=== PATIENT | male | born 1985 | race Caucasian/White ===

== ENCOUNTER 2024-02-27 00:41 | Emergency (ER) | payer SELFPAY ==
[2024-02-27 00:43] VITALS: BP 126/66
[2024-02-27 00:49] VITALS: BMI 41.0
[2024-02-27 00:55] LABS: Glucose - Point of Care 103 mg/dl (70-99)
--- NOTE | 2024-02-27 01:04 | ED.GENMED ---
History of Present Illness
<BRUNO Gabriel - Last Filed: 02/27/24 02:26>
General
Chief Complaint: Overdose Unintentional
Source: patient
Exam Limitations: clinical condition
Time Seen by Provider: 02/27/24 00:48
Nursing documentation reviewed up to this point in time: agreed with
<Akira eRnee DO - Last Filed: 02/27/24 02:32>
General
Source: patient
Exam Limitations: clinical condition
History of Present Illness
History of Present Illness:
Pleasant 38-year-old male presents with acute heroin overdose. Patient admits to doing 1 bag of heroin this evening. He states that the first time in 15 years. Patient was out at a bar he admits to drinking an alcoholic beverage before going into
the bathroom. He was found some unresponsive. EMS and police were notified. When police arrived they gave him 4 mg of intranasal Narcan. Patient awakened.
Past History
<BRUNO Gabriel - Last Filed: 02/27/24 02:26>
Social History
Tobacco: Non-smoker
Alcohol: Former
Drug: None
Review of Systems
<DO Dung Bell Last Filed: 02/27/24 02:32>
Review of Systems
Allergies reviewed?: Yes
Unable to obtain full review of systems at this time due to: due to acuity
Other source history: ambulance crew
All Other Systems: Not applicable
Constitutional: Reports no symptoms
EENT: Reports no symptoms
Respiratory: Reports no symptoms
Cardiac: Reports no symptoms
ABD/GI: Reports no symptoms
: Reports no symptoms
Musculoskeletal: Reports no symptoms
Skin: Reports no symptoms
Neurological: Reports no symptoms
Endocrine: Reports no symptoms
Hematologic/Lymphatic: Reports no symptoms
Psychiatric: Reports anxiety
Phy Exam
<Akira Renee DO - Last Filed: 02/27/24 02:32>
General Physical Exam
General Presentation: no apparent distress
General age: appears older than age
General Skin: warm and dry
General Habitus: obese
General Mental: appears intoxicated
General Hydration: appears well hydrated
ENT Exam
ENT Exam: EOMI, pharynx normal, neck supple and normocephalic
Eye Exam
Eye Exam: PERRL, cornea clear and conjunctiva normal
Cardiovascular Exam
Cardiovascular Exam: regular rate/rhythm, no edema, no murmur and normal peripheral pulses
Pulmonary Exam
Pulmonary Exam: lungs clear, no respiratory distress, no rales, no crackles, no rhonchi, no stridor, no wheezing and no cough
Gastrointestinal Exam
Gastrointestinal Exam: normal bowel sounds, non tender, soft, no organomegaly, no pulsatile mass and non distended
Neurological Exam
Neurological Exam: alert, oriented x3, no motor deficits and speech normal
Musculoskeletal Exam
Musculoskeletal Exam: edema
Skin Exam
Skin Exam: normal color, warm/dry, no rash and no petechia
Psychiatric Exam
Psychiatric Exam: normal mood/affect
Course
<ST NeryPA - Last Filed: 02/27/24 02:26>
Orders/Labs/Results
Orders:
Orders
02/27/24 00:46
EKG [Electrocardiogram (*1)] Urgent
Reason for Study: Syncope
02/27/24 00:47
EKG- Treatment ONCE
02/27/24 00:48
Bedside Glucose- Treatment ONCE
Cardiac Monitoring- Treatment ONCE
Urine Drug Abuse Screen Urgent
Date Specimen was Collected: 02/27/24
Time Specimen was Collected: 01:47
02/27/24 01:01
Acetaminophen Urgent
Alcohol Urgent
Complete Blood Count/With Diff Urgent
Comprehensive Metabolic Panel Urgent
NT-proBNP Urgent
PTT Urgent
Prothrombin Time Urgent
Salicylate Urgent
Troponin I Urgent
02/27/24 01:48
Urinalysis Reflex To Culture Urgent
Date Specimen was Collected: 02/27/24
Time Specimen was Collected: 01:47
Urine Microscopic Reflex Cult Urgent
Urine Culture Urgent
SHAHLA Source: U
Specimen Description:
Date Specimen was Collected: 02/27/24
Time Specimen was Collected: 01:47
Abnormal Lab Results
02/27/24 02/27/24 02/27/24
00:54 01:01 01:48
RBC 3.64 L 10^6/uL
(4.70-6.10)
Hgb 12.5 L g/dL
(13.0-18.0)
Hct 36.0 L %
(39.0-52.0)
MCV 98.9 H fL
(80.0-94.0)
MCH 34.3 H pg
(27.0-31.0)
Plt Count 91 L 10^3/uL
(130-400)
MPV 11.6 H fL
(7.4-10.4)
Absolute Lymphs (auto) 0.6 L 10^3/uL
(1.2-3.4)
Absolute Monos (auto) 0.8 H 10^3/uL
(0.1-0.6)
Neutrophils % 75.7 H %
(42.2-75.2)
Lymphocytes % 8.4 L %
(20.5-51.1)
Monocytes % 12.5 H %
(1.7-9.3)
PT 16.7 H Sec
(11.4-14.6)
Creatinine 0.6 L mg/dL
(0.7-1.3)
Glucose 109 H mg/dl
(70-99)
Total Bilirubin 2.6 H mg/dl
(0.2-1.3)
AST 96 H U/L
(17-59)
Ur Occult Blood Reflex Trace A
(Negative)
Urine Bilirubin 1+ A
(Negative)
Urine Urobilinogen 4+ A
(Neg - 1+)
Urine RBC 7-10 A /HPF
(0-2)
Urine Bacteria (Reflex) Moderate A
(Negative)
Urine Albumin (Reflex) 3+ A
(Neg - Trace)
Salicylates < 1.0 L mg/dl
(2.0-20.0)
Acetaminophen < 10 L ug/ml
(10-30)
POC Glucose 103 H mg/dl
(70-99)
02/27/24 01:01
02/27/24 01:01
Vital Signs
Initial and Last Documented VS:
Initial Vital Signs
Temp Pulse Resp BP Pulse Ox
97.8 F 88 19 126/66 95
02/27/24 00:43 02/27/24 00:43 02/27/24 00:43 02/27/24 00:43 02/27/24 00:43
Last Documented Vital Signs
Temp Pulse Resp BP Pulse Ox
97.8 F 88 21 126/66 95
02/27/24 00:43 02/27/24 01:00 02/27/24 01:00 02/27/24 00:43 02/27/24 01:08
Ayannalt;Akira Renee, DO - Last Filed: 02/27/24 02:32>
Orders/Labs/Results
Orders:
Orders
02/27/24 00:46
EKG [Electrocardiogram (*1)] Urgent
Reason for Study: Syncope
02/27/24 00:47
EKG- Treatment ONCE
02/27/24 00:48
Bedside Glucose- Treatment ONCE
Cardiac Monitoring- Treatment ONCE
Urine Drug Abuse Screen Urgent
Date Specimen was Collected: 02/27/24
Time Specimen was Collected: 01:47
02/27/24 01:01
Acetaminophen Urgent
Alcohol Urgent
Complete Blood Count/With Diff Urgent
Comprehensive Metabolic Panel Urgent
NT-proBNP Urgent
PTT Urgent
Prothrombin Time Urgent
Salicylate Urgent
Troponin I Urgent
02/27/24 01:48
Urinalysis Reflex To Culture Urgent
Date Specimen was Collected: 02/27/24
Time Specimen was Collected: 01:47
Urine Microscopic Reflex Cult Urgent
Urine Culture Urgent
SHAHLA Source: U
Specimen Description:
Date Specimen was Collected: 02/27/24
Time Specimen was Collected: 01:47
Abnormal Lab Results
02/27/24 02/27/24 02/27/24
00:54 01:01 01:48
RBC 3.64 L 10^6/uL
(4.70-6.10)
Hgb 12.5 L g/dL
(13.0-18.0)
Hct 36.0 L %
(39.0-52.0)
MCV 98.9 H fL
(80.0-94.0)
MCH 34.3 H pg
(27.0-31.0)
Plt Count 91 L 10^3/uL
(130-400)
MPV 11.6 H fL
(7.4-10.4)
Absolute Lymphs (auto) 0.6 L 10^3/uL
(1.2-3.4)
Absolute Monos (auto) 0.8 H 10^3/uL
(0.1-0.6)
Neutrophils % 75.7 H %
(42.2-75.2)
Lymphocytes % 8.4 L %
(20.5-51.1)
Monocytes % 12.5 H %
(1.7-9.3)
PT 16.7 H Sec
(11.4-14.6)
Creatinine 0.6 L mg/dL
(0.7-1.3)
Glucose 109 H mg/dl
(70-99)
Total Bilirubin 2.6 H mg/dl
(0.2-1.3)
AST 96 H U/L
(17-59)
Ur Occult Blood Reflex Trace A
(Negative)
Urine Bilirubin 1+ A
(Negative)
Urine Urobilinogen 4+ A
(Neg - 1+)
Urine RBC 7-10 A /HPF
(0-2)
Urine Bacteria (Reflex) Moderate A
(Negative)
Urine Albumin (Reflex) 3+ A
(Neg - Trace)
Salicylates < 1.0 L mg/dl
(2.0-20.0)
Acetaminophen < 10 L ug/ml
(10-30)
POC Glucose 103 H mg/dl
(70-99)
02/27/24 01:01
02/27/24 01:01
Vital Signs
Initial and Last Documented VS:
Initial Vital Signs
Temp Pulse Resp BP Pulse Ox
97.8 F 88 19 126/66 95
02/27/24 00:43 02/27/24 00:43 02/27/24 00:43 02/27/24 00:43 02/27/24 00:43
Last Documented Vital Signs
Temp Pulse Resp BP Pulse Ox
97.8 F 88 21 126/66 95
02/27/24 00:43 02/27/24 01:00 02/27/24 01:00 02/27/24 00:43 02/27/24 01:08
<BRUNO Gabriel - Last Filed: 02/27/24 02:26>
*Critical Care Note
Total Time (30-74mins, 75-104mins- exclusive of procedures): Not Applicable
ED Attending Note
<BRUNO Gabriel - Last Filed: 02/27/24 02:26>
-
Portions of this chart may have been created with voice recognition software.� Occasional wrong word or��sound alike� substitutions may have occurred due to the inherent limitations of voice recognition software.
Discharge Plan
Departure
Patient Disposition: Home (Routine Discharge)
Date of Disposition: 02/27/24
Time of Disposition: 02:31
Patient with high blood pressure during this ER visit?: Yes
Condition: Good
Discharge Problem:
Overdose
Instructions: Opioid Overdose (DC), How to Give Naloxone, Accidental Overdose (DC), BLOOD PRESSURE
Prescriptions:
New
naloxone [Narcan] 4 mg/actuation spray,non-aerosol
4 mg intranasal DIRECTED Qty: 2 0RF
Referrals:
Danica Bolden [Active] -
Activity Restrictions/Additional Instructions:
It was a pleasure meeting you and taking part in your care. We hope for your continued healing and wellness.
Please read discharge instructions in their entirety. However, they are for general education and may not describe your exact diagnosis at discharge. Information on your ER visit and medical conditions were discussed with you along with appropriate
follow up information...
If indicated, please take your medications as instructed and indicated on discharge paperwork.
Please schedule a follow up appointment as directed. Call to schedule an appointment
Please return to the emergency department with ANY change in, persisting, or worsening of symptoms. If any of your symptoms do not improve, or persist, or become more severe within 6-12 hours, please return to the emergency department for further
care.
Please return to the emergency department if you develop a headache, neck pain/stiffness, fever greater than 100.4F, chest pain, shortness of breath, persistent nausea, vomiting, slurred speech, difficulty walking, numbness/tingling, weakness, signs
of infection or any other symptoms that are worrisome to you.
If you have any questions or concerns please do not hesitate to call the Hospital at
Interventions
Interventions:
*Risk Screen - Suicide Last Done: 02/27/24 01:08
*General Assessment Last Done: 02/27/24 01:08
*Neglect/Abuse Screening Last Done: 02/27/24 01:08
*ED COVID-19 Vaccine History Last Done: 02/27/24 01:08
ED- Cardiac Assessment Last Done: 02/27/24 01:08
ED- Neurological Assessment Last Done: 02/27/24 01:08
ED- Pulmonary Assessment Last Done: 02/27/24 01:08
Discharge Date and Time
Print Language: WELSH
[2024-02-27 01:24] LABS: % Basophils 0.5 % (0-2); % Eosinophils 2.4 % (0-6); % Immature Granulocytes 0.5 % (0-0.5); % Lymphocytes 8.4 % (20.5-51.1); % Monocytes 12.5 % (1.7-9.3); % Neutrophils 75.7 % (42.2-75.2); Absolute Eosinophils 0.2 10^3/uL (0-0.7); Absolute Lymphocytes 0.6 10^3/uL (1.2-3.4); Absolute Monocytes 0.8 10^3/uL (0.1-0.6); Hemoglobin 12.5 g/dL (13.0-18.0); Mean Corp Hgb Conc. 34.7 g/dL (33.0-37.0); Mean Corpuscular Hgb 34.3 pg (27.0-31.0); Mean Corpuscular Volume 98.9 fL (80.0-94.0); Nucleated Red Blood Cells % 0 % (-); Red Blood Cell Count 3.64 10^6/uL (4.70-6.10); Red Cell Dist. Width 13.9 % (11.5-14.5); White Blood Cell Count 6.6 10^3/uL (4.8-10.8)
[2024-02-27 01:26] LABS: INR 1.29; PT 16.7 Sec (11.4-14.6)
[2024-02-27 01:27] LABS: APTT 32.6 Sec (23.4-35.0)
[2024-02-27 01:29] LABS: ALT (SGPT) 49 U/L (0-50); AST (SGOT) 96 U/L (17-59); Acetaminophen < 10 ug/ml (10-30); Albumin 3.7 g/dl (3.5-5.0); Alkaline Phosphatase 100 U/L (38-126); Blood Urea Nitrogen 12 mg/dl (9-20); Calcium 8.5 mg/dl (8.4-10.2); Carbon Dioxide 25 mmol/L (22-30); Chloride 100 mmol/L (98-107); Estimated Creatinine Clearance > 125 ml/min; Glucose 109 mg/dl (70-99); Potassium 3.6 mmol/L (3.5-5.1); Sodium 137 mmol/L (135-145); Total Bilirubin 2.6 mg/dl (0.2-1.3); Total Protein 7.9 g/dl (6.3-8.2); eGFR > 60.00
[2024-02-27 01:34] LABS: Alcohol None Detected
[2024-02-27 01:40] LABS: NT-proBNP 23.9 pg/ml; Salicylate < 1.0 mg/dl (2.0-20.0); Troponin I 0.012 ng/ml
[2024-02-27 01:41] LABS: Mean Platelet Volume 11.6 fL (7.4-10.4); Platelet Count 91 10^3/uL (130-400)
[2024-02-27 01:48] VITALS: BP 123/69
[2024-02-27 01:54] LABS: Urine Albumin 3+ (Neg - Trace); Urine Bilirubin 1+ (Negative); Urine Character Slightly Cloudy (Clear); Urine Color Amber; Urine Glucose Negative (Negative); Urine Ketone Negative (Negative); Urine Leukocyte Negative (Negative); Urine Nitrite Negative (Negative); Urine Occult Blood Trace (Negative); Urine Specific Gravity 1.025 (<1.030); Urine Urobilinogen 4+ (Neg - 1+)
[2024-02-27 02:00] VITALS: BP 110/56
[2024-02-27 02:07] LABS: Urine Bacteria Moderate (Negative); Urine Granular Cast 0-2 /LPF (0); Urine Squamous Cell >30 /LPF (Few)
[2024-02-27 02:08] LABS: Urine Mucus Few
[2024-02-27 02:34] VITALS: BP 107/87
[2024-02-27 07:24] LABS: Amphetamines Negative (Negative); Barbiturates Negative (Negative); Benzodiazepines Negative (Negative); Buprenorphine Negative (Negative); Cocaine Positive (Negative); Marijuana Positive (Negative); Methadone Negative (Negative); Methamphetamines Negative (Negative); Opiates Negative (Negative); Phencyclidine Negative (Negative); Tricyclic Antidepressants Negative (Negative)
[2024-02-27 08:04] LABS: Fentanyl, Urine Positive (Negative)
== END 2024-02-27 02:45 | disposition home or self-care (01) ==
LOC: EMR 00:41
PROVIDERS: EMERGENCY PHYSICIAN Student in an Organized Health Care Education/Training Program
DX: T40.1X1A Poisoning by heroin, accidental (unintentional), initial encounter (principal); R03.0 Elevated blood-pressure reading, without diagnosis of hypertension
CPT/HCPCS: 99284; 80053; 80143; 80179; 80306; 80307; 81003; 81015; 82077; 82962; 83880; 84484; 85025; 85610; 85730; 87086; 93005

== ENCOUNTER 2024-10-24 05:57 | Inpatient (IN) | payer OTHER, SELFPAY ==
[2024-10-23 23:47] VITALS: BP 177/113
[2024-10-24] VITALS: BP 177/113
[2024-10-24 00:46] LABS: Hematocrit 36.0 % (39.0-52.0); Hemoglobin 12.5 g/dL (13.0-18.0); Mean Corp Hgb Conc. 34.7 g/dL (33.0-37.0); Mean Corpuscular Volume 88.5 fL (80.0-94.0); Nucleated Red Blood Cells % 0 % (-); Platelet Count 142 10^3/uL (130-400); Red Cell Dist. Width 14.6 % (11.5-14.5)
[2024-10-24 00:49] LABS: ALT (SGPT) 27 U/L (0-50); AST (SGOT) 44 U/L (17-59); Albumin 3.7 g/dl (3.5-5.0); Alkaline Phosphatase 161 U/L (38-126); Blood Urea Nitrogen 7 mg/dl (9-20); Calcium 9.0 mg/dl (8.4-10.2); Carbon Dioxide 25 mmol/L (22-30); Chloride 108 mmol/L (98-107); Glucose 126 mg/dl (70-99); Potassium 3.7 mmol/L (3.5-5.1); Sodium 140 mmol/L (135-145); Total Protein 9.3 g/dl (6.3-8.2); eGFR > 60.00
--- NOTE | 2024-10-24 02:04 | ED.GENMED ---
History of Present Illness
<Jay Jay Thomas MD, Resident - Last Filed: 10/24/24 05:46>
General
Chief Complaint: Skin Problem
Source: patient
Time Seen by Provider: 10/24/24 01:52
Nursing documentation reviewed up to this point in time: agreed with
History of Present Illness
History of Present Illness:
This is a 39-year-old male presenting in the emergency department for medical care( IV abx). He informed me that he was using IV fentanyl and developed low back pain and weakness of bilateral lower leg went to [facility]. [place]
where they performed a lumbar puncture and found to have staph infection. He was started on IV antibiotics(unknown). He was recommended to complete 6 weeks of IV antibiotics however his insurance was not covering his stay at the facility so he
left AMA and presenting in the [facility] emergency department today for IV antibiotics.
Additionally he also continues to have low back pain for which reportedly he was getting IV Dilaudid and IV Toradol.
Past History
<Jay Jay Thomas MD, Resident - Last Filed: 10/24/24 05:46>
Past History
ED Past Medical History: Other (IV drug use)
ED Past Surgical History: Orthopedic
Patient has exhibited threatening behavior?: No
Social History
Tobacco: Smoker
Alcohol: Former
Drug: None
Phy Exam
<Jay Jay Thomas MD, Resident - Last Filed: 10/24/24 05:46>
General Physical Exam
General Presentation: mild distress
General age: appears stated age
General Skin: warm
General Mental: alert
Cardiovascular Exam
Cardiovascular Exam: regular rate/rhythm and no murmur
Gastrointestinal Exam
Gastrointestinal Exam: normal bowel sounds, non tender, soft and non distended
Neurological Exam
Neurological Exam: alert, oriented x3, no motor deficits and no sensory deficits
Musculoskeletal Exam
Musculoskeletal Exam: other (Limited ROM b/l LE because of pain)
Course
<Jay Jay Thomas MD, Resident - Last Filed: 10/24/24 05:46>
Orders/Labs/Results
Orders:
Orders
10/24/24 00:17
Complete Blood Count/With Diff Urgent
Comprehensive Metabolic Panel Urgent
Lactic Acid Urgent
Blood Culture Urgent
SHAHLA Source: Blood/Venous
Specimen Description:
10/24/24 04:04
Piperacillin/Tazo 3.375 Gram [Zosyn] 3.375 gram in 50 ml IV NOW
10/24/24 05:11
HYDROmorphone [Dilaudid] 1 mg IV NOW STA
10/24/24 05:14
Admit/Transfer Patient As Directed
Co-Sign Provider:
Level of Care: Inpatient admission
Assign to:: Medical/Surgical
Physician / Group: Nataly Rodriguez
Diagnosis: osteomyelitis
Reason for Hospitalization: osteomyelitis
Expected length of stay greater than two midnights?: Yes
ELOS- Estimated Length of Stay in days: 4
I certify the patient meets the requirements for IP care: Yes
Code Status As Directed
Resuscitation Status: Full Code
PRN Pain Medication Management As Directed
May give lesser potent ordered pain med per pt: Yes
preference::
Protocol:: Medication orders for pain may be administered in a
manner that supports deferring to patient preference
when the pt is:
- Requesting an ordered lesser potent pain medication.
Least to most potent pain medications are defined
as: acetaminophen < NSAID < tramadol < opioids
(morphine, oxycodone, hydromorphone).
- Requesting a lesser dose of the same medication IF
ORDERED.
- Requesting a less intrusive route of administration
if both routes are prescribed by the provider (PO <
IV).
10/24/24 05:16
Vancomycin [Vancocin] 2,000 mg 0.9% Sodium Chloride 500 ml [Nss] 500 ml IV NOW
10/24/24 05:17
0.9% Sodium Chloride 500 ml [Nss] 500 ml IV BOLUS
10/24/24 05:18
EKG [Electrocardiogram (*1)] Routine
Reason for Study: QTc Monitoring
10/24/24 Breakfast
Regular
At Your Request: Full Participation
Does patient need a safe tray?: No
Flush (0.9% Sodium Chloride) [Flush (Nss)] See Dose Instructions IV PER PROTOCOL
10/24/24 07:33
Acetaminophen [Tylenol] 650 mg PO Q4HPRN PRN
Bisacodyl [Dulcolax] 10 mg RECTAL [id number] PRN
Docusate W/Senna [Senokot-S] 1 tablet PO BIDPRN PRN
HYDROmorphone [Dilaudid] 1 mg IV Q3HPRN PRN
Ketorolac [Toradol] 15 mg IV Q6
Polyethylene Glycol Powder [Miralax] 17 grams PO DAILYPRN PRN
10/24/24 07:33
Consult Infectious Disease [INFECTIOUS DISEASE CONSULT] Routine
Consulting Provider: Akira Perdomo
Was physician already notified: Yes
Activity As Directed
Activity Level: As Tolerated
Obtain Records As Directed
Dates of Information to be Released: 2024
Type of Information Requested: Other
Entire Record
If Other, list type of info requested: lumbar spine fluid collection culture
Comment: [facility]
Vital Signs As Directed
Frequency: Per unit guidelines
DX Deep Vein Thrombosis Video Routine
10/24/24 08:00
Nicotine [Nicoderm Transdermal] 21 mg TRANSDERM DAILY
10/24/24 12:00
Piperacillin/Tazo 3.375 Gram [Zosyn] 3.375 gram in 50 ml IV Q6
10/24/24 18:00
Enoxaparin Sodium [Lovenox] 40 mg SC QPM
10/25/24 06:00
Basic Metabolic Panel IN AM
Complete Blood Count/With Diff IN AM
Magnesium IN AM
Abnormal Lab Results
10/24/24
00:17
RBC 4.07 L 10^6/uL
(4.70-6.10)
Hgb 12.5 L g/dL
(13.0-18.0)
Hct 36.0 L %
(39.0-52.0)
RDW 14.6 H %
(11.5-14.5)
Absolute Neuts (auto) 8.5 H 10^3/uL
(1.4-6.5)
Absolute Lymphs (auto) 0.6 L 10^3/uL
(1.2-3.4)
Neutrophils % 86.8 H %
(42.2-75.2)
Lymphocytes % 6.3 L %
(20.5-51.1)
Chloride 108 H mmol/L
(98-107)
BUN 7 L mg/dl
(9-20)
Creatinine 0.4 L mg/dL
(0.7-1.3)
Glucose 126 H mg/dl
(70-99)
Alkaline Phosphatase 161 H U/L
(38-126)
Total Protein 9.3 H g/dl
(6.3-8.2)
10/24/24 00:17
10/24/24 00:17
Vital Signs
Initial and Last Documented VS:
Initial Vital Signs
Temp Pulse BP Pulse Ox
36.6 C 107 177/113 99
10/23/24 23:47 10/23/24 23:47 10/23/24 23:47 10/23/24 23:47
Last Documented Vital Signs
Temp Pulse Resp BP Pulse Ox
36.7 C 77 16 174/100 99
10/24/24 08:14 10/24/24 08:14 10/24/24 08:14 10/24/24 08:14 10/24/24 08:14
<Sonny Rand MD - Last Filed: 10/24/24 08:50>
Orders/Labs/Results
Orders:
Orders
10/24/24 00:17
Complete Blood Count/With Diff Urgent
Comprehensive Metabolic Panel Urgent
Lactic Acid Urgent
Blood Culture Urgent
SHAHLA Source: Blood/Venous
Specimen Description:
10/24/24 04:04
Piperacillin/Tazo 3.375 Gram [Zosyn] 3.375 gram in 50 ml IV NOW
10/24/24 05:11
HYDROmorphone [Dilaudid] 1 mg IV NOW STA
10/24/24 05:14
Admit/Transfer Patient As Directed
Co-Sign Provider:
Level of Care: Inpatient admission
Assign to:: Medical/Surgical
Physician / Group: Nataly Rodriguez
Diagnosis: osteomyelitis
Reason for Hospitalization: osteomyelitis
Expected length of stay greater than two midnights?: Yes
ELOS- Estimated Length of Stay in days: 4
I certify the patient meets the requirements for IP care: Yes
Code Status As Directed
Resuscitation Status: Full Code
PRN Pain Medication Management As Directed
May give lesser potent ordered pain med per pt: Yes
preference::
Protocol:: Medication orders for pain may be administered in a
manner that supports deferring to patient preference
when the pt is:
- Requesting an ordered lesser potent pain medication.
Least to most potent pain medications are defined
as: acetaminophen < NSAID < tramadol < opioids
(morphine, oxycodone, hydromorphone).
- Requesting a lesser dose of the same medication IF
ORDERED.
- Requesting a less intrusive route of administration
if both routes are prescribed by the provider (PO <
IV).
10/24/24 05:16
Vancomycin [Vancocin] 2,000 mg 0.9% Sodium Chloride 500 ml [Nss] 500 ml IV NOW
10/24/24 05:17
0.9% Sodium Chloride 500 ml [Nss] 500 ml IV BOLUS
10/24/24 05:18
EKG [Electrocardiogram (*1)] Routine
Reason for Study: QTc Monitoring
10/24/24 Breakfast
Regular
At Your Request: Full Participation
Does patient need a safe tray?: No
Flush (0.9% Sodium Chloride) [Flush (Nss)] See Dose Instructions IV PER PROTOCOL
10/24/24 07:33
Acetaminophen [Tylenol] 650 mg PO Q4HPRN PRN
Bisacodyl [Dulcolax] 10 mg RECTAL [id number] PRN
Docusate W/Senna [Senokot-S] 1 tablet PO BIDPRN PRN
HYDROmorphone [Dilaudid] 1 mg IV Q3HPRN PRN
Ketorolac [Toradol] 15 mg IV Q6
Polyethylene Glycol Powder [Miralax] 17 grams PO DAILYPRN PRN
10/24/24 07:33
Consult Infectious Disease [INFECTIOUS DISEASE CONSULT] Routine
Consulting Provider: Akira Perdomo
Was physician already notified: Yes
Activity As Directed
Activity Level: As Tolerated
Obtain Records As Directed
Dates of Information to be Released: 2024
Type of Information Requested: Other
Entire Record
If Other, list type of info requested: lumbar spine fluid collection culture
Comment: [facility]
Vital Signs As Directed
Frequency: Per unit guidelines
DX Deep Vein Thrombosis Video Routine
10/24/24 08:00
Nicotine [Nicoderm Transdermal] 21 mg TRANSDERM DAILY
10/24/24 12:00
Piperacillin/Tazo 3.375 Gram [Zosyn] 3.375 gram in 50 ml IV Q6
10/24/24 18:00
Enoxaparin Sodium [Lovenox] 40 mg SC QPM
10/25/24 06:00
Basic Metabolic Panel IN AM
Complete Blood Count/With Diff IN AM
Magnesium IN AM
Abnormal Lab Results
10/24/24
00:17
RBC 4.07 L 10^6/uL
(4.70-6.10)
Hgb 12.5 L g/dL
(13.0-18.0)
Hct 36.0 L %
(39.0-52.0)
RDW 14.6 H %
(11.5-14.5)
Absolute Neuts (auto) 8.5 H 10^3/uL
(1.4-6.5)
Absolute Lymphs (auto) 0.6 L 10^3/uL
(1.2-3.4)
Neutrophils % 86.8 H %
(42.2-75.2)
Lymphocytes % 6.3 L %
(20.5-51.1)
Chloride 108 H mmol/L
(98-107)
BUN 7 L mg/dl
(9-20)
Creatinine 0.4 L mg/dL
(0.7-1.3)
Glucose 126 H mg/dl
(70-99)
Alkaline Phosphatase 161 H U/L
(38-126)
Total Protein 9.3 H g/dl
(6.3-8.2)
10/24/24 00:17
10/24/24 00:17
Vital Signs
Initial and Last Documented VS:
Initial Vital Signs
Temp Pulse BP Pulse Ox
36.6 C 107 177/113 99
10/23/24 23:47 10/23/24 23:47 10/23/24 23:47 10/23/24 23:47
Last Documented Vital Signs
Temp Pulse Resp BP Pulse Ox
36.7 C 77 16 174/100 99
10/24/24 08:14 10/24/24 08:14 10/24/24 08:14 10/24/24 08:14 10/24/24 08:14
<Jay Jay Thomas MD, Resident - Last Filed: 10/24/24 05:46>
MDM/Problems Addressed
Differential Diagnosis Includes:
Osteomyelitis vs others
MDM/Problems Addressed:
Will check CBC CMP lactic acid and blood culture
CBC with white count of 9.8, Hb 12.5 CMP with creatinine of 0.4 BUN 7 alkaline phosphatase 161 total protein of 9.3. Lactic acid 1.8. Blood culture pending
Requested records from [facility] reviewed where patient had CT of the lumbar spine as well as an MRI of Lumbar spine. These revealed L4-L5 diskitis with some bony destruction, consistent with osteomyelitis and small lumbar spinal
fluid collection. Patient was seen by the infectious disease team and the neurosurgery and he was started on IV antibiotics after he had an aspiration and lumbar spinal fluid collection. Patient was continued on IV antibiotics during his hospital
stay from October 13, 2024 to October 17, 2024 when patient left [place] stating that he does not have good insurance and he cannot pay [id number]. He knew that he needed IV antibiotics for 6 weeks. He decided to come to the ER given increasing low back
pain again and the need of IV antibiotics.
will admit for further care.
Chronic conditions affecting care: Other (IV drug use)
<Jay Jay Thomas MD, Resident - Last Filed: 10/24/24 05:46>
*Pulse Oximetry
SaO2: 99
Oxygen Mode of Delivery: Room air
Patient hypoxic: no
*Critical Care Note
Total Time (30-74mins, 75-104mins- exclusive of procedures): Not Applicable
ED Attending Note
<Jay Jay Thomas MD, Resident - Last Filed: 10/24/24 05:46>
-
Portions of this chart may have been created with voice recognition software.� Occasional wrong word or��sound alike� substitutions may have occurred due to the inherent limitations of voice recognition software.
<Sonny Rand MD - Last Filed: 10/24/24 08:50>
ED Attending Note
Patient seen and examined by attending physician: Yes
I performed a history and physical exam of patient and discussed management with resident, I reviewed resident's note and agree with documented findings and plan of care.: Yes
ED Attending Note:
I have seen and evaluated the patient with a [id number] encounter. I have spoken to the resident and involved in the medical history, the physical exam, medical decision making.
Evaluation and management service: agree unless noted differently below.
Results interpretation: agree unless noted differently below.
Focused HPI: 39-year-old male with history as noted presents to the ER seeking to continue care for back infection. Patient says he was just admitted at [facility] for 'back infection.' He says that he was told he needed long-term IV
antibiotics but he is not sure which ones. It sounds like he left AGAINST MEDICAL ADVICE about a week ago�patient admits that he left and use drugs. Has had continued back pain and decided he would come here to continue care.
Physical exam: Awake alert no distress. Hypertensive, mild tachycardia. He has some mild tenderness in the lumbar region midline. Motor and sensory intact in the legs.
Medical Decision Makin-year-old male presents seeking care for back infection as described above. We called over to obtain some initial records from his recent hospitalization and we were able to confirm that he was found to have osteomyelitis
and discitis and was receiving antibiotics before you left AGAINST MEDICAL ADVICE. Awaiting rest of records. Will hold off on additional imaging. Treat with empiric antibiotics pending full records. Admit for continued treatment. Discussed with
hospitalist.
Discharge Plan
Departure
Patient Disposition: Admit
Presentation/result/management discussed w/ accepting MD/DO: Hospitalist
Discharge Problem:
Osteomyelitis, Discitis
Interventions
Interventions:
*General Assessment Last Done: 10/24/24 00:00
[2024-10-24 04:55] VITALS: BMI 28.0
[2024-10-24] MEDS: ZOSYN 50 IV ×4 (04:56→23:26)
--- NOTE | 2024-10-24 05:02 | HPS.HSE ---
Family Physician
-
Family Physician: NOT KNOW UNKNOWN - PT DOES
Chief Complaint
-
IV antibiotic treatment
History of Present Illness
Mr. Brandon Sen is a 39 yo man with hx IVDA, HCV, liver cirrhosis, recent admission to [facility] for osteomyelitis of lumbar spine when he left AMA, presents to with continued back pain and requesting re-initiation of
antibiotics.
During last admission, it is unclear what IV antibiotics he was given. He had an aspiration of lumbar spine fluid collection per discharge summary. He was seen by Neurosurgery and ID and did not undergo any surgical intervention. Blood cultures
remained negative and TTE did not reveal any valvular vegetation.
Patient states since discharge he did not use IV drugs. He last used Fentanyl about a week ago. He left because he was nervous about the cost of his stay.
He has had continued back pain since discharge. No LE weakness or tingling, no saddle anesthesia or incontinence.
Medical History
Past Medical History
Past Medical History: Reports Other (IVDA, HCV, liver cirrhosis)
Past Surgical History: Reports Other
Social History
Tobacco: Smoker
Alcohol: None
Drug: IVDA
Family History
Family History: Not pertinent
Allergies / Home Medications
Allergies reflects when Allergies were last updated in DEQ.
Home Medications with original date entered in DEQ
Allergy/Medication List:
Allergies
Allergy/AdvReac Type Severity Reaction Status Date / Time
No Known Allergies Allergy Unverified 10/24/24 00:00
Home Medications
naloxone 4 mg/actuation nasal spray (Narcan) 4 mg intranasal DIRECTED #2 ea 02/27/24
*awaiting med rec
Review of Systems
-
History Source: Patient
A 12 point ROS was completed and negative except as noted: Yes
Physical Exam
Vital Signs
Vital Signs
Temp Pulse Resp BP Pulse Ox
97.9 F 107 20 177/113 99
10/24/24 00:00 10/24/24 00:00 10/24/24 00:00 10/24/24 00:00 10/24/24 02:05
Physical Exam
General: Other (patient appears uncomfortable hunched in pain)
HEENT: PERRLA
Respiratory: Clear; No Wheezes
Cardiac: S1/S2 and Regular Rhythm
GI: Soft and Non Tender
Laboratory Results
-
10/24/24 00:17
10/24/24 00:17
Laboratory Results
Lactic Acid 1.8 mmol/L (0.7-2.0) 10/24/24 00:17
Total Bilirubin 1.2 mg/dl (0.2-1.3) 10/24/24 00:17
AST 44 U/L (17-59) 10/24/24 00:17
ALT 27 U/L (0-50) 10/24/24 00:17
Alkaline Phosphatase 161 U/L (38-126) H 10/24/24 00:17
Data Reviewed
-
Diagnostic Radiology: Report Reviewed by me
Lab Data: Labs Reviewed by me
Impression/Plan
-
Mr. Brandon Sen is a 39 yo man with hx IVDA, HCV, liver cirrhosis, recent admission to [facility] for osteomyelitis of lumbar spine when he left AMA, presents to with continued back pain and requesting re-initiation of
antibiotics.
Triage VS significant for T 97.9, P 107, BP 177/113. Labs without leukocytosis, Hg 12.5, Na 140, K+ 3.7, Cr 0.4.
MAR: IV Vanc/Zosyn
L4,L5 diskitis/osteomyelitis with recent admission to [facility] where left AMA
Lumbar spine collection aspiration performed
-admit to med/surg
-will continue IV Vanc/Zosyn
-team to touch base with [facility] later today to obtain results of aspiration cultures
-ID consulted
-patient is not septic
-pain control with standing Toradol x 48 hours and IV Dilaudid PRN
Hx IVDA
-last fentanyl use one week ago per patient
awaiting home med rec
DVT PPx Lovenox subQ
FULL CODE
[2024-10-24] MEDS: DILAUDID 1 MG IV ×3 (06:12→16:25)
[2024-10-24] MEDS: NSS 500 IV (06:25)
[2024-10-24] MEDS: VANCOCIN 540 MG IV (06:26)
[2024-10-24 07:22] VITALS: BP 156/95
--- NOTE | 2024-10-24 07:42 | PHA.VAN.IN ---
Assessment
- Assessment
Renal Function: Appears similar to baseline
Concomitant Antimicrobials: piperacillin/tazobactam
AUC Dosing Plan
- Dosing Variables
Dosing Weight (kg): 99
Dosing CrCl (ml/min): 125
Vd coefficient (L/kg): 0.7
- Empiric Dosing
Initial / Loading Dose: 2000mg - 10/24 06:26
Maintenance Regimen: Vanc 1000mg Q8H starting at 1400
Estimated AUC (mcg*h/mL): 422
Estimated Peak (mcg*h/mL): 25
Estimated Trough (mcg/ml): 11.7
Estimated Half Life (H): 6.4
- Monitoring
No levels ordered at this time: consider levels in next few days
Pharmacokinetics Vancomycin I
- -
Patient Age: 39
Patient Sex: Male
Vancomycin Day #: 1
Indication: Bone And Joint
Requesting Provider: Dr. Rodriguez
Pertinent Antimicrobial Allergies:
NKDA
Height / Weight:
Height 6 ft 2 in
Actual Weight 98.8 kg
- Vital Signs / Lab Results
Temp Pulse Resp BP Pulse Ox
97.9 F 76 20 156/95 100
10/24/24 00:00 10/24/24 07:22 10/24/24 07:22 10/24/24 07:22 10/24/24 07:22
Lab Results - Hematology
10/24/24
00:17
WBC 9.8
Lab Results - Chemistry
10/24/24
00:17
BUN 7 L
Creatinine 0.4 L
Albumin 3.7
10/24/24
00:17
Lactic Acid 1.8
[2024-10-24 08:14] VITALS: BP 174/100; BMI 27.7
[2024-10-24] MEDS: NICODERM TRANSDERMAL 21 MG TRANSDERM (09:49)
[2024-10-24] MEDS: TORADOL 15 MG IV ×3 (09:50→23:28)
[2024-10-24] MEDS: FLUSH (NSS) 2 FLUSH IV ×3 (09:51→14:02)
--- NOTE | 2024-10-24 10:34 | W.PN.HOSP.TC ---
Today's Communication/Plan
-
IV antibiotics.
Assessment / Plan
Assessment / Plan
Physical exam:
General: Acutely ill
HEENT: Normocephalic, Atraumatic and Moist Mucous Membranes
Respiratory: Clear to Auscultation; Negative Wheezes, Rales or Rhonchi
Cardiac: Regular Rhythm and S1/S2
GI: Soft, Nontender and Distended, caput medusa
Musculoskeletal: Tenderness in midline and right lumbar area. No Clubbing, No Cyanosis and No Edema
Neuro: Awake, Alert and Oriented, no neurological deficit
Psych: Calm
A/P:
Acute L4-L5 discitis/osteomyelitis:
Continue antibiotics, IV Zosyn and vancomycin
Check sed rate and CRP
Continue pain control
ID consult appreciated
Obtain old medical records from [facility]
He tells me he signed AMA because he was in [place] and he has 'Medicaid from [place]'
Elevated blood pressure:
Start clonidine for elevated blood pressure and some withdrawal symptoms as well
Monitor COWS for withdrawal
History of polysubstance abuse (including IVDA):
Urine tox positive for cocaine, marijuana
Benzodiazepines dependence:
Restart Xanax 1 mg twice a day to avoid seizure withdrawal (he apparently takes 2 mg twice a day and more)
Might be able to switch to Klonopin tapering down the road
History hepatitis C:
Per patient he completed treatment prior
History of cirrhosis:
Monitor volume status closely and any signs of decompensation
Check LFTs and INR in a.m. and monitor MELD score
Anemia:
No signs of bleeding
Continue to monitor hemoglobin
Thrombocytopenia:
Improved
Shortness of breath:
Obtain baseline chest x-ray
No worrisome signs on exam at the moment
Nicotine addiction:
Nicotine patch
DVT prophylaxis:
Lovenox SQ
CODE STATUS:
Full code
Total time spent on today's encounter was 55 minutes which included time spent in counseling the patient/family regarding diagnosis and treatment plan as listed above, goals of care, and symptom management. Case was discussed with nursing staff,
specialists, and care coordinators/case management. All labs and imaging personally reviewed by me. Remainder the time spent in detailed review of previous records, lab data, imaging, and other medical provider documentation.
Anticipated Discharge: > 48 hours
Subjective/Interval History
-
Date of Service: October 24, 2024
Patient complains of back pain but not any worse than before. He also feels anxious and tells me that he takes 'high doses Xanax from street daily'. He feels mild short of breath and anxious. Normal pulse ox. Blood pressure elevated. He tells
me last use of illicit drugs about 3 weeks ago. Denies any bowel bladder incontinence. Afebrile today
Objective Data
-
Labs:
Laboratory Results
10/24/24
00:17
WBC 9.8
Hgb 12.5 L
Hct 36.0 L
Plt Count 142
Sodium 140
Potassium 3.7
Chloride 108 H
Carbon Dioxide 25
BUN 7 L
Creatinine 0.4 L
Glucose 126 H
Calcium 9.0
Total Bilirubin 1.2
AST 44
ALT 27
Alkaline Phosphatase 161 H
Vital Signs:
Vital Signs
Temp Pulse Resp BP Pulse Ox
98.1 F 77 16 174/100 99
10/24/24 08:14 10/24/24 08:14 10/24/24 08:14 10/24/24 08:14 10/24/24 08:14
[2024-10-24 11:55] VITALS: BP 148/87
[2024-10-24] MEDS: CATAPRES 0.1 MG PO ×2 (12:42→23:25)
[2024-10-24] MEDS: XANAX 1 MG PO ×2 (12:42→23:52)
--- NOTE | 2024-10-24 12:55 | CON.ID ---
Consultation
-
Date/Time Consultation Requested: 10/24/2024 0733
Date/Time Consultation Performed: 10/24/2024 1244
Requesting Provider: Dr. Rodriguez
Performing Provider: Dr. Perdomo
Reason for Consultation: L4-5 discitis/osteomyelitis
Chief Complaint / Past History
History of Present Illness
Brandon Sen is a 39-year-old man being evaluated at the request of Dr. Rodriguez in regards to L4-5 osteomyelitis and discitis. History is obtained from chart review, along with patient interview.
The patient has an underlying history of hepatitis C (treated) along with IVDA, and he reports that he relapsed approximately 3 weeks ago. He presented to [facility] on 10/13 with complaints of low back pain. Per records from that
medical facility he had complained of low back pain with radiation to the left lower extremity approximately [address] imaging, along with MRI imaging was performed which revealed L4-L5 discitis with bone destruction consistent with osteomyelitis
and a small lumbar spinal fluid collection. During his stay in the hospital he was evaluated by Infectious Disease, along with neurosurgery. He was started on IV antibiotics (unknown, but patient reports 'every 4 hours'). On 10/17, the patient
reports he became concerned about his ability to pay for his hospitalization and left AMA. He presents to [facility] yesterday, as he would like to resume IV antibiotics in the treatment of his discitis and osteomyelitis.
At this point in time he notes ongoing low back discomfort. He denies any significant difficulty walking or with his bowels or bladder.
Past History
Additional Past Medical History:
Cirrhosis
Hep C (treated)
IVDA
Additional Past Surgical History:
Wrist surgery
Allergy History:
No Known Allergies Allergy (Unverified 10/24/24 00:00)
Medications Reviewed: Yes
Current Antibiotics:
Vancomycin (dosing per pharmacy)
Zosyn
Social History
Tobacco: Smoker (1 pack/day)
Alcohol: None
Drug: Narcotics and IVDA
Personal: Single
Employment: Not Employed
Family History
Family History: Not Pertinent
Review of Systems
Vital Signs
Temp Pulse Resp BP Pulse Ox
98.1 F 80 16 148/87 100
10/24/24 11:55 10/24/24 11:55 10/24/24 11:55 10/24/24 11:55 10/24/24 11:55
Physical Exam
Physical Exam
Constitutional: No Acute Distress, Comfortable and Non-toxic
Eyes: No Conjunctival Hemorrhage and Sclera Anicteric
Oral: No Thrush and No Ulcers
Cardiovascular: S1/S2; Negative S3/S4 or Murmur
Pulmonary: Clear; Negative Wheezes or Rales
Gastrointestinal: Soft and Non Tender
Musculoskeletal: Spinal Tenderness (Lumbar spinal area)
Skin: Warm and Dry; Negative Rash or Jaundice
Neurological: Awake and Alert
Psychological: Calm
Lab / Diagnostic Study Results
10/24/24 00:17
10/24/24 00:17
Abs Immat Gran (auto) 0.0 10^3/uL (0-0.05) 10/24/24 00:17
Absolute Neuts (auto) 8.5 10^3/uL (1.4-6.5) H 10/24/24 00:17
Absolute Lymphs (auto) 0.6 10^3/uL (1.2-3.4) L 10/24/24 00:17
Absolute Monos (auto) 0.6 10^3/uL (0.1-0.6) 10/24/24 00:17
Absolute Basos (auto) 0.0 10^3/uL (0-0.2) 10/24/24 00:17
Immature Gran % 0.4 % (0-0.5) 10/24/24 00:17
Neutrophils % 86.8 % (42.2-75.2) H 10/24/24 00:17
Lymphocytes % 6.3 % (20.5-51.1) L 10/24/24 00:17
Monocytes % 6.2 % (1.7-9.3) 10/24/24 00:17
Eosinophils % 0.1 % (0-6) 10/24/24 00:17
Basophils % 0.2 % (0-2) 10/24/24 00:17
Lactic Acid 1.8 mmol/L (0.7-2.0) 10/24/24 00:17
Microbiology Results
Micro:
10/24/24 10:21 MRSA Screen - Pending
Nose
10/24/24 00:17 Blood Culture - Pending
Blood/Venous
Assessment / Plan
Hx L4-L5 discitis/vertebral osteomyelitis
� Patient left AMA from [facility] on 10/17
Hx IVDA
Hx hep C (patient reports prior treatment)
Cirrhosis
Recommendations:
Continue with empiric vancomycin and Zosyn.
Old records have been requested from [facility]; await acquisition
Follow white count and temperature curve.
Check ESR and CRP.
Further recommendations as additional data is returned.
[2024-10-24] MEDS: VANCOCIN 200 IV ×2 (14:01→22:05)
[2024-10-24 15:55] VITALS: BP 171/92
--- NOTE | 2024-10-24 16:43 | CM ---
Alert awake oriented patient who lives alone in a 1 story home with 5 step to enter.He is independent in all activities of daily living.He does not drive. He was offered VN he declined need.
No VN hx / No SNF history
Pharmacy [facility]
PCP None Gave copy of [facility] MD in [place]
PLAN Home Declined VN
[2024-10-24] MEDS: TORADOL IV (17:45)
[2024-10-24] MEDS: XANAX PO (20:00)
[2024-10-24 23:00] VITALS: BP 159/88
[2024-10-25 00:55] VITALS: BP 157/91
[2024-10-25] MEDS: TORADOL 15 MG IV ×3 (06:02→18:04)
[2024-10-25] MEDS: VANCOCIN 200 IV ×3 (06:02→22:08)
[2024-10-25] MEDS: ZOSYN 50 IV ×4 (06:02→23:50)
[2024-10-25] MEDS: FLUSH (NSS) 1 FLUSH IV (06:02)
[2024-10-25 07:30] VITALS: BP 173/116
[2024-10-25 07:31] LABS: Hematocrit 32.6 % (39.0-52.0); Hemoglobin 11.4 g/dL (13.0-18.0); Mean Corp Hgb Conc. 35.0 g/dL (33.0-37.0); Mean Corpuscular Volume 87.6 fL (80.0-94.0); Nucleated Red Blood Cells % 0 % (-); Platelet Count 101 10^3/uL (130-400); Red Cell Dist. Width 14.2 % (11.5-14.5)
[2024-10-25 07:32] LABS: INR 1.23; PT 15.7 Sec (11.4-14.6)
[2024-10-25 07:53] LABS: ALT (SGPT) 21 U/L (0-50); AST (SGOT) 34 U/L (17-59); Albumin 3.1 g/dl (3.5-5.0); Alkaline Phosphatase 120 U/L (38-126); Blood Urea Nitrogen 8 mg/dl (9-20); Calcium 8.5 mg/dl (8.4-10.2); Carbon Dioxide 25 mmol/L (22-30); Chloride 111 mmol/L (98-107); Estimated Creatinine Clearance > 125 ml/min; Glucose 89 mg/dl (70-99); Magnesium 1.8 mg/dl (1.6-2.3); Potassium 3.8 mmol/L (3.5-5.1); Sodium 141 mmol/L (135-145); Total Protein 8.0 g/dl (6.3-8.2); eGFR > 60.00
[2024-10-25 07:55] LABS: C-Reactive Protein 17.80 mg/L (0.0-10.00)
[2024-10-25 08:08] VITALS: BP 173/116
[2024-10-25] MEDS: NICODERM TRANSDERMAL 21 MG TRANSDERM (08:10)
[2024-10-25] MEDS: CATAPRES 0.1 MG PO ×2 (08:10→20:19)
[2024-10-25] MEDS: XANAX 1 MG PO (08:10)
--- NOTE | 2024-10-25 09:29 | PTCARENOTE ---
Tech came to me and said the Pt was drinking hot cocoa laying in bed and spilled it all over his chest. I went to see the Pt and he was in fact laying in bed. His chest was exposed. His right chest to right abdomen and right flank was red. made
aware.
[2024-10-25 11:12] VITALS: BP 157/102
--- NOTE | 2024-10-25 13:12 | W.PN.ID1 ---
Date of Service
Date of Service: October 25, 2024
Today's Communication
Continue antibiotics.
Assessment / Plan
Hx L4-L5 discitis/vertebral osteomyelitis
� Patient left AMA from [facility] on 10/17
Elevated EF
Elevated CRP
Hx IVDA
Hx hep C (patient reports prior treatment)
Cirrhosis
Recommendations:
Continue with empiric vancomycin and Zosyn.
Old records have been requested from [facility]; await acquisition. None as of today.
Follow white count and temperature curve.
Check ESR and CRP.
Further recommendations as additional data is returned.
Subjective / Review of Systems
Review of Systems: No Fever
Vital Signs / Physical Exam
Vital Signs
Vital Signs
Temp Pulse Resp BP Pulse Ox
97.9 F 75 18 157/102 95
10/25/24 07:30 10/25/24 11:12 10/25/24 07:30 10/25/24 11:12 10/25/24 07:30
Physical Exam
Constitutional: No Acute Distress, Comfortable and Non-toxic
Pulmonary: Non Labored
Gastrointestinal: Non Distended
Extremities: Negative Edema, Cyanosis or Erythema
Skin: Negative Rash or Jaundice
Psychological: Calm
Objective Data
Lab Data
Lab Results
10/25/24 05:57
10/25/24 05:57
ESR 89 mm/hour (0-20) H 10/25/24 05:57
PT 15.7 Sec (11.4-14.6) H 10/25/24 05:57
INR 1.23 10/25/24 05:57
Estimated Creat Clear > 125 ml/min 10/25/24 05:57
Lactic Acid 1.8 mmol/L (0.7-2.0) 10/24/24 00:17
Total Bilirubin 0.9 mg/dl (0.2-1.3) 10/25/24 05:57
AST 34 U/L (17-59) 10/25/24 05:57
ALT 21 U/L (0-50) 10/25/24 05:57
Alkaline Phosphatase 120 U/L (38-126) 10/25/24 05:57
C-Reactive Protein 17.80 mg/L (0.0-10.00) H 10/25/24 05:57
Most recent labs reviewed.
Micro Results:
10/24/24 00:17 Blood Culture - Preliminary
Blood/Venous No Growth in 24 hours- Final report to follow
10/24/24 10:21 MRSA Screen - Pending
Nose
[2024-10-25] MEDS: COZAAR 50 MG PO (13:29)
--- NOTE | 2024-10-25 14:12 | PHA.VAN.FU ---
Addendum entered and electronically signed by Rosa Collins [facility] 10/25/24 16:18:
BUN & SCR ordered per protocol
Original Note:
Vancomycin Assessment / Plan
- Assessment
Renal Function: Stable
WBC's are: WNL
In the past 24 hrs, patient has been: Afebrile
Concomitant Antimicrobials: piperacillin/tazobactam
- Dosing Plan
Continue: Vanc 1000mg Q8H
- Monitoring Plan
Peak Level: 8 01:00
Trough Level: 10/26 05:30
Monitoring Comments: levels to be drawn after 5th maintenance dose
patient should be approaching steady state
- Follow Up
Pharmacy will continue to follow.
Vancomycin Follow UP
- -
Patient Age: 39
Patient Sex: Male
Vancomycin Day #: 2
Indication: Bone And Joint
Requesting Provider: Dr. Rodriguez / Leanne
Pertinent Antimicrobial Allergies:
NKDA
Height / Weight:
Height 6 ft 2 in
Actual Weight 97.658 kg
- Vital Signs / Lab Results
Temp Pulse Resp BP Pulse Ox
97.9 F 75 18 157/102 95
10/25/24 07:30 10/25/24 11:12 10/25/24 07:30 10/25/24 11:12 10/25/24 07:30
Lab Results - Hematology
10/24/24 10/25/24
00:17 05:57
WBC 9.8 6.1
Lab Results - Chemistry
10/24/24 10/25/24
00:17 05:57
BUN 7 L 8 L
Creatinine 0.4 L 0.4 L
Estimated Creat Clear > 125
Albumin 3.7 3.1 L
10/24/24
00:17
Lactic Acid 1.8
Microbiology Results
10/24/24 00:17 Blood Culture - Preliminary
Blood/Venous No Growth in 24 hours- Final report to follow
--- NOTE | 2024-10-25 14:51 | W.PN.HOSP.TC ---
Today's Communication/Plan
-
maintain on empiric abx
obtain records from the previous hospital
Assessment / Plan
Assessment / Plan
Acute L4-L5 discitis/osteomyelitis:
- Reported by patient, awaiting records. senior warehouse clerk had to refax the request as facility could not locate patient records on first attempt due to error with patient details.
- CRP 17.8
- Will hold on further repeat MRI of the spine until records received.
- Continue antibiotics, IV Zosyn and vancomycin
- ID following and help appreciated
- Patient complaining some back pain, will provide patient nonnarcotic pain medication first and can provide narcotics if not better. Will adjust the regimen for patient to try Tylenol/Toradol first.
Polysubstance use - IV use
- Urine drug screen positive for fentanyl/cocaine
- No signs of withdrawal continue monitoring
Toxic encephalopathy
- Patient somewhat somnolent
- Reported patient using Xanax although PDMP checked showed last time patient had Xanax filled was in October 12
- Urine drug screen not done at admission and patient has already got Xanax, unsure if patient was using any non-prescribed benzo. possibly less likely scenario.
Hypertension
Hypertensive urgency
- Suspecting due to cocaine use related.
- Start losartan. already on clonidine.
History of benzodiazepine use
- As mentioned above patient have filled prescription benzodiazepine in October 12
- Will hold benzodiazepine for time being as patient is somnolent.
History hepatitis C:
Cirrhosis
Presumed chronic Anemia and thrombocytopenia -no baseline blood work to compare with. Cirrhosis and bacteremia can explain thrombocytopenia.
Tobacco use
DVT prophylaxis: Lovenox SQ
CODE STATUS: Full code
Care plan discussed with infectious disease
Anticipated Discharge: > 48 hours
Subjective/Interval History
-
Date of Service: October 25, 2024
Patient is somnolent although waking up and responding appropriately to questions
Complaining of some back pain
Objective Data
-
Labs:
Laboratory Results
10/25/24
05:57
WBC 6.1
Hgb 11.4 L
Hct 32.6 L
Plt Count 101 L D
PT 15.7 H
INR 1.23
Sodium 141
Potassium 3.8
Chloride 111 H
Carbon Dioxide 25
BUN 8 L
Creatinine 0.4 L
Glucose 89
Calcium 8.5
Total Bilirubin 0.9
AST 34
ALT 21
Alkaline Phosphatase 120
Vital Signs:
Vital Signs
Temp Pulse Resp BP Pulse Ox
97.9 F 75 18 157/102 95
10/25/24 07:30 10/25/24 11:12 10/25/24 07:30 10/25/24 11:12 10/25/24 07:30
I&O
10/24/24 10/25/24 10/26/24
06:59 06:59 06:59
Intake Total 3560 / 3560
Output Total 4300 / 4300
Balance -740 / -740
Review of Systems
-
Respiratory: Reports No Symptoms
Cardiac: Reports No Symptoms
Abdomen/GI: Reports No Symptoms
Physical Exam
-
General: No Apparent Distress and Comfortable
HEENT: Negative Oxygen
Cardiac: Rub
Musculoskeletal: No Edema
Neuro: Awake, Alert, Oriented, No Motor Deficits and Nonfocal/Grossly Intact
Psych: Calm
[2024-10-25 15:22] VITALS: BP 152/86
[2024-10-25] MEDS: TYLENOL 1000 MG PO (18:03)
[2024-10-25 23:20] VITALS: BP 159/109
[2024-10-26 00:55] VITALS: BP 157/91
[2024-10-26] MEDS: XANAX 1 MG PO ×2 (01:31→12:23)
[2024-10-26] MEDS: TORADOL 15 MG IV (03:08)
[2024-10-26] MEDS: ZOSYN 50 IV ×2 (05:52→12:23)
[2024-10-26] MEDS: VANCOCIN 200 IV (06:21)
[2024-10-26 06:44] LABS: Blood Urea Nitrogen 8 mg/dl (9-20); Estimated Creatinine Clearance > 125 ml/min
[2024-10-26 07:00] VITALS: BP 183/106
[2024-10-26] MEDS: NICODERM TRANSDERMAL 21 MG TRANSDERM (07:49)
[2024-10-26] MEDS: COZAAR 50 MG PO (07:49)
[2024-10-26] MEDS: CATAPRES 0.1 MG PO (07:49)
--- NOTE | 2024-10-26 08:07 | PHA.VAN.FU ---
Vancomycin Assessment / Plan
- Assessment
Renal Function: Stable
WBC's are: WNL
In the past 24 hrs, patient has been: Afebrile
Concomitant Antimicrobials: piperacillin/tazobactam
- Assessment - Therapeutic Drug Monitoring
Extrapolated Cmax (mcg/mL): 20.9
Peak level was drawn: Appropriately (drawn ~2H after end of previous infusion)
Extrapolated Cmin (mcg/mL): 8.7
Trough Drawn: Appropriately
Levels were drawn: At steady state (levels drawn after 5th maintenance dose)
Calculated AUC (mcg*h/mL): 336
Calculated ke: 0.1258
Calculated half life (H): 5.5
Calculated Vd (L): 71 (~0.7 L/kg)
Calculated Vanc CL (ml/min): 149
May have additional accumulation but should be at steady state based on half-life
- Dosing Plan
Adjust Regimen to: Vanc 1250mg Q8H starting at 1400
New Regimen Predicts: AUC (460), Peak (27.8), Trough (12.3)
- Monitoring Plan
No level(s) ordered at this time: consider levels in next few days
- Follow Up
Pharmacy will continue to follow.
Vancomycin Follow UP
- -
Patient Age: 39
Patient Sex: Male
Vancomycin Day #: 3
Indication: Bone And Joint
Requesting Provider: Dr. Rodriguez / Leanne
Pertinent Antimicrobial Allergies:
NKDA
Height / Weight:
Height 6 ft 2 in
Actual Weight 97.658 kg
Pertinent Past Medical History: IV YOEL
- Vital Signs / Lab Results
Temp Pulse Resp BP Pulse Ox
97.2 F 74 18 183/106 100
10/26/24 07:00 10/26/24 07:00 10/26/24 07:00 10/26/24 07:00 10/26/24 07:00
Lab Results - Hematology
10/24/24 10/25/24
00:17 05:57
WBC 9.8 6.1
Lab Results - Chemistry
10/24/24 10/25/24 10/26/24
00:17 05:57 06:00
BUN 7 L 8 L 8 L
Creatinine 0.4 L 0.4 L 0.4 L
Estimated Creat Clear > 125 > 125
Albumin 3.7 3.1 L
10/24/24
00:17
Lactic Acid 1.8
Microbiology Results
10/24/24 00:17 Blood Culture - Preliminary
Blood/Venous No Growth in 48 hours- Final report to follow
10/24/24 10:21 MRSA Screen - Final
Nose No Methicillin Resistant Staphylococcus aureus isolated.
Therapeutic Drug Monitoring
Vancomycin Peak 16.3 ug/ml (18-26) L 10/26/24 01:06
Vancomycin Trough 8.8 ug/ml (5-20) 10/26/24 06:00
--- NOTE | 2024-10-26 12:22 | W.PN.HOSP.TC ---
Today's Communication/Plan
-
d/c AMA
Assessment / Plan
Assessment / Plan
pt is a 39 year old male
Acute L4-L5 discitis/osteomyelitis: Patient asking for an oral antibiotic to take--spoke with ID--there is no oral antibiotic for discitis/osteomyelitis--patient states that his father had a stroke up in [place] and that he is leaving at 5 PM
today--AMA paperwork provided to the patient since there is no oral antibiotic appropriate--we still have not received records from [facility] as of this writing
- Reported by patient, awaiting records. deli clerk had to refax the request as facility could not locate patient records on first attempt due to error with patient details.
- CRP 17.8
- Will hold on further repeat MRI of the spine until records received.
- Continue antibiotics, IV Zosyn and vancomycin
- ID following and help appreciated
- Patient complaining some back pain, will provide patient nonnarcotic pain medication first and can provide narcotics if not better. Will adjust the regimen for patient to try Tylenol/Toradol first.
Polysubstance use - IV use--
- Urine drug screen positive for fentanyl/cocaine
- No signs of withdrawal continue monitoring
Toxic encephalopathy--reportedly was somnolent yesterday, awake today
- Patient somewhat somnolent
- Reported patient using Xanax although PDMP checked showed last time patient had Xanax filled was in October 12
- Urine drug screen not done at admission and patient has already got Xanax, unsure if patient was using any non-prescribed benzo. possibly less likely scenario.
Hypertension--due to drug use
Hypertensive urgency
- Suspecting due to cocaine use related.
- Start losartan. already on clonidine.
History of benzodiazepine use
- As mentioned above patient have filled prescription benzodiazepine in October 12
- Will hold benzodiazepine for time being as patient is somnolent.
History hepatitis C:
Cirrhosis
Presumed chronic Anemia and thrombocytopenia -no baseline blood work to compare with. Cirrhosis and bacteremia can explain thrombocytopenia.
Tobacco use
DVT prophylaxis: Lovenox SQ
CODE STATUS: Full code
Care plan discussed with infectious disease
Anticipated Discharge: Today
Subjective/Interval History
-
Date of Service: October 26, 2024
Patient tells me he is leaving today--he states that he has a family emergency, that his father had a stroke and was in [place]
Objective Data
-
Labs:
Laboratory Results
10/26/24
06:00
BUN 8 L
Creatinine 0.4 L
Vital Signs:
max temp for 24 hours
10/25/24
15:22
Temp 97.9 F
Vital Signs
Temp Pulse Resp BP Pulse Ox
97.2 F 74 18 183/106 100
10/26/24 07:00 10/26/24 07:00 10/26/24 07:00 10/26/24 07:00 10/26/24 07:00
I&O
10/25/24 10/26/24 10/27/24
06:59 06:59 06:59
Intake Total 3560 / 3560 960 / 960
Output Total 4300 / 4300 3400 / 3400 1300 / 1300
Balance -740 / -740 -2440 / -2440 -1300 / -1300
Review of Systems
-
All other systems: Reviewed and negative
Physical Exam
-
General: Well Developed, Well Nourished and No Apparent Distress
HEENT: Normocephalic and Atraumatic
Respiratory: Clear to Auscultation; Negative Wheezes or Rhonchi
Cardiac: Regular Rhythm, S1/S2, Murmur and Tachycardic
GI: Soft, Nontender, Nondistended and Normal Bowel Sounds
Musculoskeletal: No Clubbing, No Cyanosis and No Edema
Skin: Warm
Neuro: Awake
--- NOTE | 2024-10-26 12:23 | CM ---
CM reviewed pt with Dr Oliva- pt leaving AMA
He has arranged for a ride
--- NOTE | 2024-10-26 12:40 | W.PN.ID1 ---
Date of Service
Date of Service: October 26, 2024
Today's Communication
Continue antibiotics.
Assessment / Plan
Hx L4-L5 discitis/vertebral osteomyelitis
� Patient left AMA from [facility] on 10/17
Elevated ESR
Elevated CRP
Hx IVDA
Hx Hep C (patient reports prior treatment)
Cirrhosis
Recommendations:
Continue with empiric vancomycin and Zosyn.
Old records have been requested from [facility]; await acquisition. None as of today. [employer] attempting to request again.
Follow white count and temperature curve.
Patient reports that he needs to leave to get to see his father at a hospital in [place]. I counseled him that it is imperative that he stays on IV antibiotics right now in the treatment of his infection.
At present, I cannot narrow him to any other antibiotics as I do not know what previously grew. I also counseled him that oral antibiotics are not useful in the treatment of discitis and osteomyelitis at this point, having recently been off of
antibiotics for a period of time. I counseled him on the risks of leaving, including, but not limited to paralysis and potential from sepsis.
����������������������������������������������������������
Chief Complaint
-: Other (Lumbar discitis/osteomyelitis)
Subjective / Review of Systems
Patient seen and examined. Reports ongoing pain. Also notes that his father has sustained a stroke in [place], and he needs to get up to him today. He notes that his ride is coming to pick him up at 5 PM.
Vital Signs / Physical Exam
Vital Signs
Vital Signs
Temp Pulse Resp BP Pulse Ox
97.2 F 74 18 183/106 100
10/26/24 07:00 10/26/24 07:00 10/26/24 07:00 10/26/24 07:00 10/26/24 07:00
Physical Exam
Constitutional: No Acute Distress, Comfortable and Non-toxic
Pulmonary: Non Labored
Gastrointestinal: Non Distended
Extremities: Negative Edema, Cyanosis or Erythema
Skin: Negative Rash or Jaundice
Neurological: Awake, Alert and Oriented
Psychological: Calm
Objective Data
Lab Data
Lab Results
10/25/24 05:57
10/26/24 06:00
ESR 89 mm/hour (0-20) H 10/25/24 05:57
PT 15.7 Sec (11.4-14.6) H 10/25/24 05:57
INR 1.23 10/25/24 05:57
Estimated Creat Clear > 125 ml/min 10/26/24 06:00
Lactic Acid 1.8 mmol/L (0.7-2.0) 10/24/24 00:17
Total Bilirubin 0.9 mg/dl (0.2-1.3) 10/25/24 05:57
AST 34 U/L (17-59) 10/25/24 05:57
ALT 21 U/L (0-50) 10/25/24 05:57
Alkaline Phosphatase 120 U/L (38-126) 10/25/24 05:57
C-Reactive Protein 17.80 mg/L (0.0-10.00) H 10/25/24 05:57
Most recent labs reviewed.
Micro Results:
10/24/24 00:17 Blood Culture - Preliminary
Blood/Venous No Growth in 48 hours- Final report to follow
10/24/24 10:21 MRSA Screen - Final
Nose No Methicillin Resistant Staphylococcus aureus isolated.
Care Review
Plan reviewed with: Physician (Hospitalist)
--- NOTE | 2024-10-26 12:56 | PTCARENOTE ---
Pt is leaving AMA at 4 if he is not discharged with an ABX. The MD has made Pt aware of care plan and he still wants to leave AMA
[2024-10-26] MEDS: VANCOCIN 275 MG IV (13:02)
[2024-10-26 15:02] VITALS: BP 182/97
--- NOTE | 2024-10-26 15:08 | W.DCSUMMARY ---
Discharge Summary
Discharge Data
Date of Admission: 10/24/24
Date of Discharge: 10/26/24
-
Pending Results: No
Hospital Course
Primary care physician : Not Listed
Principal Discharge diagnosis : Presumed acute L4-L5 discitis/osteomyelitis (brief review of records from [facility] appears to show Staph aureus in the spinal fluid)
Chronic Discharge diagnosis : Polysubstance abuse, toxic encephalopathy, essential hypertension with hypertensive urgency, history of benzodiazepine use, history of hepatitis C with cirrhosis, anemia of chronic disease and thrombocytopenia
Hospital Course : Patient was a 39-year-old male with a history of IV drug abuse, hepatitis C with liver cirrhosis who had a recent admission to [facility] for osteomyelitis of the lumbar spine. He left there AGAINST MEDICAL ADVICE.
He presented here requesting reinitiation of antibiotics. Patient said that since his discharge there he did not use IV drugs but did use fentanyl about a week prior. He was admitted.
Problem #1: Presumed acute L4-L5 discitis/osteomyelitis (brief review of records from [facility] appears to show Staph aureus in the spinal fluid). Patient was seen in consultation by infectious disease and started on IV vancomycin and IV Zosyn.
Records from [place] were asked for. They arrived today. My brief review showed CSF with Staph aureus. Patient is asking for oral antibiotics as he needs to leave the hospital due to a family emergency. Patient states that his father in [facility]
[place] had a stroke. I have spoken with infectious disease and there is no oral antibiotic for this issue. Patient refuses to stay in the hospital given that his ride is coming at 5 PM to go to [place]. Patient is leaving AGAINST MEDICAL ADVICE
and has signed the forms.
Problem #2: All other medical issues. These include Polysubstance abuse, toxic encephalopathy, essential hypertension with hypertensive urgency, history of benzodiazepine use, history of hepatitis C with cirrhosis, anemia of chronic disease and
thrombocytopenia. His medical issues were stable during his hospitalization. Medications were continued as able.
Patient is leaving AGAINST MEDICAL ADVICE. If there are any questions regarding this dictation or his hospital stay, please not hesitate to call. Our office number is [phone].
Time for discharge 30 minutes.
Discharge Plan
-
Patient Disposition: Against Medical Advice
Discharge Diagnosis/Procedures: Acute L4/L5 discitis/osteomyelitis, polysubstance use IV, current vaping in the hospital, toxic encephalopathy, essential hypertension with hypertensive urgency, history of benzodiazepine use, history of hepatitis C
with cirrhosis, chronic anemia and thrombocytopenia
Condition: Good
Diet: As tolerated and Regular
Activity: As tolerated
Driving Restrictions: No driving
Bathing Restrictions: None
Referrals:
UNKNOWN - PT DOES,NOT KNOW [Family Provider] - in less than 1 week
Prescriptions:
Discontinued
alprazolam [Xanax] 2 mg Tablet
2 mg PO BID
Discharge Date and Time
Print Language: HUNGARIAN
--- NOTE | 2024-10-26 15:59 | PTCARENOTE ---
Pt is leaving AMA. He does not want to stay for treatment. A friend is picking him up. AMA signed by MD and patient.
== END 2024-10-26 16:55 | disposition left against medical advice (07) | DRG 539 ==
LOC: 4 EAST ACU 05:57
PROVIDERS: Hospitalist; ADMITTING PHYSICIAN Student in an Organized Health Care Education/Training Program; ATTENDING PHYSICIAN Internal Medicine; CONSULT PHYSICIAN Internal Medicine Infectious Disease; EMERGENCY PHYSICIAN Emergency Medicine
DX: M46.26 Osteomyelitis of vertebra, lumbar region (principal); G92.9 Unspecified toxic encephalopathy; M46.46 Discitis, unspecified, lumbar region; D63.8 Anemia in other chronic diseases classified elsewhere; I10 Essential (primary) hypertension; I16.0 Hypertensive urgency; Z82.3 Family history of stroke; Z53.29 Procedure and treatment not carried out because of patient's decision for other reasons; F17.210 Nicotine dependence, cigarettes, uncomplicated; F19.10 Other psychoactive substance abuse, uncomplicated
CPT/HCPCS: 71045; 80053; 80202; 80306; 80307; 82248; 82565; 83605; 83735; 84520; 85025; 85610; 85652; 86140; 87040; 87070; 96365; 96375; 99284; 99406